=== PATIENT | male | born 1975 | race Caucasian/White ===

== ENCOUNTER 2019-12-04 14:05 | Emergency (ER) | payer OTHER, SELFPAY ==
[2019-12-04 14:21] VITALS: BP 109/71; PULSE 89; RESP 16; TEMP 36.9; O2SAT 94; BMI 31.8
--- NOTE | 2019-12-04 14:46 | XR_ITS ---
WS: [id number] XR chest 1V portable [id number] REASON FOR EXAM: cp FINDINGS: The cardiac silhouette is normal. The lung sims are well aerated. No pneumonia, pleural effusion, pulmonary edema, or pneumothorax. The hilum and apices are normal. No osseous abnormalities. XR/XR chest 1V portable [id number] IMPRESSION: Negative chest
--- NOTE | 2019-12-04 14:46 | CT_ITS ---
WS: [id number] CT abdomen pelvis w con* [id number] REASON FOR EXAM: fall IV CONTRAST ADMINISTERED: Omnipaque 305 mL TOTAL EXAM DLP: 1773.[address] scans at [facility] use at least one of these dose optimization techniques: automat ed exposure control; mA and/or kV adjustment per patient size (includes targeted exams where dose is matched to clinical indication); or iterative reconstruction. FINDINGS: The lower lung sims and mediastinum appear to be normal. A limbus fractures seen at the L4 vertebra with a minimal compression fracture of L4 also seen. There is bilateral small inguinal hernias present. The upper abdomen shows normal appearance of the liver no lacerations of the liver or spleen are seen . A granuloma is noted in the spleen. The pancreas shows normal appearance mild atrophy. The jejunum is poorly distended and shows mild edema of the wall on the left side no other evidence o f trauma is seen. The aorta inferior vena cava are normal. The stomach showed no abnormalities. Both kidneys were normal. The adrenal glands were normal. The right colon was within normal limits. The appendix is normal. CT/CT abdomen pelvis w con* [id number] IMPRESSION: The left side of the jejunum suggest mild edema in the aburto but no obstruction is seen. No peritonitis. Limbus fracture of the L4 vertebra with mild compression changes also seen L4
--- NOTE | 2019-12-04 14:51 | ED_ITS ---
HPI - Fall General: Chief Complaint: Fall Stated Complaint: fall off roof Time Seen by Provider: 12/04/19 14:35 Source: patient Mode of arrival: ambulatory Limitations: no limitations History of Present Illness: HPI Narrative: 44 yo male that fell roughly 10 feet off a ladder today. he landed in grass and states he landed on his left side and has had left flank and side pain since then. he rates his pain a 7/10. denies hitting his head and denies loc. he has been ambulatory. complaint: fall Onset (ago): hour(s) Fall from: from height (distance) Fall witnessed: yes, by bystander Place fall occurred: home Loss of consciousness: None Prolonged down time: no Associated symptoms-after fall: Reports abdominal pain; Denies chest pain, headache(s) or neck pain Review of Systems Const: Denies: fever(s), chills, body aches or change in appetite Eyes: Denies: blurry vision or eye discomfort ENMT: Denies: throat pain or dental pain Card: Denies: chest pain Resp: Denies: dyspnea GI: Reports: abdominal pain : Denies: dysuria Musc: Denies: neck pain or back pain Skin/Breast: Denies: rash Neuro: Denies: headache(s) Psych: Denies: depression Farooq/Lymph: Denies: easy bruising All/Imm: Denies: urticaria PFSH ED PFSH: Social History Smoking and tobacco status: former smoker Physical Exam Const: COMMON NORMALS: no acute distress, patient oriented x3 and healthy appearing HENMT: COMMON NORMALS: normocephalic and atraumatic HEAD & SCALP: normocephalic and atraumatic Eye: COMMON NORMALS: Equal, round and reactive pupils present and EOMs intact bilaterally PUPIL: Yes Equal, round and reactive pupils present Neck/C-Spine: COMMON NORMALS: full ROM and supple Chest: COMMONS NORMALS: normal inspection of the chest and normal palpation of entire chest wall Resp: COMMON NORMALS: normal respiratory effort, No retractions, No use of accessory muscles and clear to auscultation bilaterally AUSCULTATION: clear to auscultation bilaterally Cardio: COMMON NORMALS: regular rate, regular rhythm and No murmurs present (Cardio) RATE: regular rate RHYTHM: regular rhythm GI: COMMON NORMALS: Normal to inspection, nondistended, normoactive bowel sounds present, Soft to palpation, non-tender and no masses PALPATION: Yes Soft to palpation OTHER: Tenderness along left CVA left lateral abdomen is well Extremity: COMMON NORMALS: normal to inspection and full ROM Neuro: COMMON NORMALS: patient oriented x3, moves all extremities and no focal motor deficits Psych: COMMON NORMALS: mental status grossly normal, Normal thought process present and cooperative THOUGHT PROCESS: Normal thought process present Skin: NARRATIVE SKIN EXAM: Abrasion over left elbow with no laceration Course Vital Signs: Vital signs: Vital Signs Temperature 98.5 F 12/04/19 14:21 Pulse Rate 89 12/04/19 14:21 Respiratory Rate 18 12/04/19 15:20 Blood Pressure 109/71 12/04/19 14:21 Pulse Oximetry 97 12/04/19 15:20 MDM - Fall MDM Narrative: Medical decision making narrative: Patient presents here with fall and does have a lumbar fracture is minor nature. Patient's pain is well controlled here. Patient placed in a TLSO brace and is to follow-up with Dr. Dubois. He also has a possible edema around bowel but he is no pain at this time and no tenderness. I informed if he has any increasing pain he is to return immediately. Patient's x-ray of his chest was normal he had no head injury. He understands and agrees to plan. Lab Data: Labs: Lab Results 12/04/19 12/04/19 Range/Units 15:14 15:14 WBC 11.6 H (4.0-10.0) 10^3/ uL RBC 3.53 L (4.1-5.3) 10^6/u L Hgb 11.5 L (11.7-16.6) g/dL Hct 34.9 L (42.0-52.0) % MCV 98.9 H (80-94) fL MCH 32.6 (28.0-34.0) pg MCHC 33.0 (30.0-36.0) g/dL RDW 13.2 (12.1-15.1) % Plt Count 273 (130-400) 10^3/c mm MPV 9.8 (7.4-10.4) fL Neut % (Auto) 81.2 % Lymph % (Auto) 8.9 % Pike % (Auto) 8.5 % Eos % (Auto) 0.3 % Baso % (Auto) 0.2 % Neut # (Auto) 9.4 H (1.8-7.7) 10^3/u L Lymph # (Auto) 1.0 (0.8-4.8) 10^3/u L Pike # (Auto) 1.0 H (0.2-0.9) 10^3/u L Eos # (Auto) 0.0 (0.0-0.8) 10^3/u L Baso # (Auto) 0.0 (0.0-0.1) 10^3/u L Nucleated RBC % (a uto) 0 % Nucleated RBCs # 0.0 /100WBC Sodium 138 (136-145) mmol/L Potassium 3.8 (3.5-5.1) mmol/L Chloride 101 (98-107) mmol/L Carbon Dioxide 25 (22-29) mmol/L Anion Gap 15.8 (5-19) BUN 19 (6-20) mg/dL Creatinine 1.9 H (0.7-1.2) mg/dL GFR Calculation 38.5 L (90-130) mL/min Glucose 102 (65-115) mg/dL Calculated Osmolal ity 283 L (285-295) mOsm/k g Calcium 9.2 (8.5-10.5) mg/dL Total Bilirubin 0.6 (0.15-1.2) mg/dL AST 26 (0-40) U/L ALT 20 (0-41) U/L Alkaline Phosphata se 48 (40-130) IU/L Total Protein 7.3 (6.6-8.7) g/dL Albumin 4.4 (3.5-5.2) g/dL Globulin 2.9 (1.3-4.6) g/dL Imaging Data^: CXR: Radiologist's impression: [address] [place] [address] XRay Report Signed Patient: Alejandro Jones Unit #: [id number] : 1975 Age/Sex: 44 / M ADM Date: 12/04/19 Loc: ER Room/Bed: Attending Dr: Ordering Provider/Ordering MD: Doris Monge MD Date of Service: 12/04/19 Procedure(s): XR chest 1V portable [id number] Accession Number(s): [id number] Report Number: [id number] WS: [id number] XR chest 1V portable [id number] REASON FOR EXAM: cp FINDINGS: The cardiac silhouette is normal. The lung sims are well aerated. No pneumonia, pleural effusion, pulmonary edema, or pneumothorax. The hilum and apices are normal. No osseous abnormalities. XR/XR chest 1V portable [id number] IMPRESSION: Negative chest CT Abd/Pel: Radiologist's impression: [place] [address] CT Scan Report Signed Patient: Alejandro Jones Unit #: [id number] : 1975 Age/Sex: 44 / M ADM Date: 12/04/19 Loc: ER Room/Bed: Attending Dr: Ordering Provider/Ordering MD: Doris Monge MD Date of Service: 12/04/19 Procedure(s): CT abdomen pelvis w con* [id number] Accession Number(s): [id number] Report Number: [id number] WS: [id number] CT abdomen pelvis w con* [id number] REASON FOR EXAM: fall IV CONTRAST ADMINISTERED: Omnipaque 305 mL TOTAL EXAM DLP: 1773.[address] scans at [facility] use at least one of these dose optimization techniques: automated exposure control; mA and/or kV adjustment per patient size (includes targeted exams where dose is matched to clinical indication); or iterative reconstruction. FINDINGS: The lower lung sims and mediastinum appear to be normal. A limbus fractures seen at the L4 vertebra with a minimal compression fracture of L4 also seen. There is bilateral small inguinal hernias present. The upper abdomen shows normal appearance of the liver no lacerations of the liver or spleen are seen. A granuloma is noted in the spleen. The pancreas shows normal appearance mild atrophy. The jejunum is poorly distended and shows mild edema of the wall on the left side no other evidence of trauma is seen. The aorta inferior vena cava are normal. The stomach showed no abnormalities. Both kidneys were normal. The adrenal glands were normal. The right colon was within normal limits. The appendix is normal. CT/CT abdomen pelvis w con* [id number] IMPRESSION: The left side of the jejunum suggest mild edema in the aburto but no obstruction is seen. No peritonitis. Limbus fracture of the L4 vertebra with mild compression changes also seen L4 Discharge Plan Discharge Patient Disposition: Home, Self-Care Clinical Impression: Fall Qualifiers: Encounter type: initial encounter Qualified Code(s): W19.XXXA - Unspecified fall, initial encounter Fracture of lumbar spine Qualifiers: Encounter type: initial encounter Lumbar vertebra fracture level: L4 Fracture type: closed Fracture morphology: other fracture Qualified Code(s): S32.048A - O ther fracture of fourth lumbar vertebra, initial encounter for closed fracture Condition: Stable Prescriptions: [place] 5-325 mg tablet 1 tab PO Q6H PRN (Reason: pain) Qty: 14 RF: 0 No Action olmesartan 40 mg tablet 40 mg PO DAILY RF: 0 escitalopram oxalate 10 mg tablet 10 mg PO DAILY RF: 0 Discharge Orders: Discharge Order (Routine); Ordered 12/04/19 Ordered By: Doris Monge Referrals: Quirino Dubois MD [Physician] - 1-3 days Discharge Diet: Advance as tolerated Discharge Activity: Resume usual activity Patient Instructions: Thoracolumbar Fracture (ED) Coding Level of Care Code ED Pairing Machine Operator for Ummg Fwd Exam Comprehensive
[2019-12-04 15:20] VITALS: RESP 18; O2SAT 97
[2019-12-04] MEDS: morphine 4 mg/mL SDV 1 mL IVP (15:20)
[2019-12-04] MEDS: sodium chloride 0.9% 1,000 ML 999 ML IV (15:21)
[2019-12-04] MEDS: ondansetron 2 mg/ML SDV 2 mL 4 MG IVP (15:21)
[2019-12-04 15:39] LABS: Alanine Aminotransferase 20 U/L (0-41); Albumin Level 4.4 g/dL (3.5-5.2); Alkaline Phosphatase 48 IU/L (40-130); Anion Gap 15.8 (5-19); Aspartate Amino Transferase 26 U/L (0-40); Blood Urea Nitrogen 19 mg/dL (6-20); Calcium 9.2 mg/dL (8.5-10.5); Carbon Dioxide 25 mmol/L (22-29); Chloride 101 mmol/L (98-107); Globulin 2.9 g/dL (1.3-4.6); Glomerular Filtration Rate 38.5 mL/min (90-130); Glucose 102 mg/dL (65-115); Osmolality Calculated 283 mOsm/kg (285-295); Potassium 3.8 mmol/L (3.5-5.1); Sodium 138 mmol/L (136-145); Total Bilirubin 0.6 mg/dL (0.15-1.2); Total Protein 7.3 g/dL (6.6-8.7)
[2019-12-04] MEDS: iohexol 300 mg/mL 100 mL Btl IV (15:48)
[2019-12-04 16:26] LABS: Basophils % 0.2 %; Eosinophils % 0.3 %; Hematocrit 34.9 % (42.0-52.0); Hemoglobin 11.5 g/dL (11.7-16.6); Lymphocytes % 8.9 %; Mean Corpuscular Hemoglobin 32.6 pg (28.0-34.0); Mean Corpuscular Volume 98.9 fL (80-94); Mean Platelet Volume 9.8 fL (7.4-10.4); Monocytes % 8.5 %; Neutrophils # 9.4 10^3/uL (1.8-7.7); Neutrophils % 81.2 %; Nucleated Red Blood Cells % 0 %; Platelet Count 273 10^3/cmm (130-400); Red Blood Count 3.53 10^6/uL (4.1-5.3); Red Cell Distribution Width 13.2 % (12.1-15.1); White Blood Count 11.6 10^3/uL (4.0-10.0)
[2019-12-04 16:47] VITALS: BP 134/74; PULSE 78; RESP 16; O2SAT 97
--- NOTE | 2019-12-05 12:53 | DCPLANNER ---
aircraft maintenance manager was asked to schedule a follow up appointment for patient with Dr. Dubois. aircraft maintenance manager called the clinic, spoke with Abigail, gave clinic patients information. aircraft maintenance manager was told that patients information would be printed and reviewed. Clinic will call telephonic nurse case manager and patient with appointment information.
--- NOTE | 2019-12-07 11:49 | DCPLANNER ---
Patient has a follow up appointment scheduled for Wednesday, December 11, 2019 at 1:00 with Yamilet Ceron. Clinic will call patient with appointment information.
--- NOTE | 2019-12-15 14:21 | DCPLANNER ---
Patient had an appointment scheduled for 12.11.[address] Garrett office. Patient attended appointment with
== END 2019-12-04 16:49 | disposition home or self-care (01) ==
PROVIDERS: Emergency Provider Emergency Medicine
DX: S32.048A Other fracture of fourth lumbar vertebra, initial encounter for closed fracture (principal); W11.XXXA Fall on and from ladder, initial encounter; Z87.891 Personal history of nicotine dependence
CPT/HCPCS: 12345; 36415; 71045; 74177; 80053; 85025; 96361; 96374; 96375; 97760; 99282; 99283; J2270; J2405; J7030; L0456; Q9967

== ENCOUNTER 2019-12-11 13:54 | Outpatient (CLI) | payer OTHER, SELFPAY ==
--- NOTE | 2019-12-11 14:01 | XR_ITS ---
WS: [id number] LUMBAR SPINE TECHNIQUE: 3 views of the lumbar spine CLINICAL INFORMATION: L4 fracture COMPARISON: 2015 FINDINGS: Five [id number]-[id number] lumbar vertebral bodies. Mild disc space narrowing L5-S1. Trace retrolisthesis L 3 on L4 and L4 on L5. Mild chronic anterior wedging at T12. Moderate facet arthropathy L5-S1 with bon y foraminal narrowing. Limbus vertebra L4 superior endplate unchanged.. XR/XR lumbar spine 2-3V* [id number] IMPRESSION: 1. No significant changes since 2015 2. Trace retrolisthesis L3 on L4 and L4 on L5. 3. Mild disc space narrowing L5-S1.
== END 2019-12-11 13:55 | disposition home or self-care (01) ==
LOC: RADWPI 13:59
PROVIDERS: Family Provider Nurse Practitioner Family; PCP Nurse Practitioner Family; Visit Provider Licensed Practical Nurse
DX: S32.048A Other fracture of fourth lumbar vertebra, initial encounter for closed fracture (principal); X58.XXXA Exposure to other specified factors, initial encounter
CPT/HCPCS: 72100

== ENCOUNTER 2020-01-12 15:06 | Outpatient (CLI) | payer OTHER, SELFPAY ==
--- NOTE | 2020-01-12 15:30 | CT_ITS ---
WS: [id number] CT LUMBAR SPINE TECHNIQUE: Noncontrast CT of the lumbar spine with coronal and sagittal reformatted images. CLINICAL INFORMATION: Fracture COMPARISON: MRI 2015 DLP: 1652.[address] scans at [facility] use at least one of these dose optimization techniques: automat ed exposure control; mA and/or kV adjustment per patient size (includes targeted exams where dose is matched to clinical indication); or iterative reconstruction. FINDINGS: Postoperative changes laminectomy L5-S1. No high-grade central canal stenosis. A few Schmorl's nodes in the lower thoracic and lumbar spine. Slight retrolisthesis L3 on L4 and L4 on L5. No acute yamileth ludwig fractures. Slight anterior wedging L4 with limbus vertebra unchanged since 2014. Nondisplaced healing left L1-L2 transverse process fractures. L1-L2: Normal. L2-L3: No significant disc bulging. Moderate facet arthropathy. Spinal canal and foramen are patent. L3-L4: Mild annular bulging. Moderate facet arthropathy. Spinal canal and foramen are patent. L4-L5: Tiny left pericentral protrusion. Impingement on the traversing left L5 nerve root. Mild centr al canal stenosis. Mild right and no significant left foraminal narrowing. Moderate facet arthropathy . L5-S1: Tiny left subarticular disc osteophyte protrusion. Impingement traversing left S1 nerve root. Mild to moderate left and no significant right foraminal narrowing. Visualized pelvic bony structures: Normal. Paravertebral soft tissues: Normal. CT/CT lumbar spine wo con* [id number] IMPRESSION: 1. Mild lumbar curve. No acute appearing compression fractures. 2. No high-grade central canal stenosis. 3. Prior postoperative changes hemilaminectomy at L5-S1. 4. Slight retrolisthesis L3 on L4 and L4 on L5. 5. Tiny disc osteophyte protrusion L5-S1 with slight impingement traversing le ft S1 nerve root. Mild left L5-S1 foraminal narrowing. 6. Mild central canal stenosis L4-5 7. Incidental limbus vertebra L4 8. Healing left L1 and L2 transverse process fractures with callus formation.
== END 2020-01-12 15:07 | disposition home or self-care (01) ==
LOC: RADWPI 15:09
PROVIDERS: Family Provider Nurse Practitioner Family; PCP Nurse Practitioner Family; Visit Provider Licensed Practical Nurse
DX: M48.50XA Collapsed vertebra, not elsewhere classified, site unspecified, initial encounter for fracture (principal); M48.061 Spinal stenosis, lumbar region without neurogenic claudication; M25.78 Osteophyte, vertebrae
CPT/HCPCS: 72131

== ENCOUNTER → 2020-04-21 11:03 | Outpatient (BNVA) | payer OTHER, SELFPAY | PROVIDERS: Family Provider Nurse Practitioner Family; PCP Nurse Practitioner Family | DX: Z20.828 Contact with and (suspected) exposure to other viral communicable diseases (principal); J11.1 Influenza due to unidentified influenza virus with other respiratory manifestations | CPT/HCPCS: 87400; 87635 ==

== ENCOUNTER 2021-11-13 20:00 | Outpatient (CLI) | payer OTHER, SELFPAY | END 2021-11-13 20:01 | disposition home or self-care (01) | LOC: SLEEP 11-14 05:57 | PROVIDERS: Family Provider Nurse Practitioner Family; PCP Nurse Practitioner Family; Visit Provider Nurse Practitioner Family | DX: G47.33 Obstructive sleep apnea (adult) (pediatric) (principal) | CPT/HCPCS: 95811 ==

== ENCOUNTER 2023-02-10 08:57 | Day surgery (SDC) | payer OTHER, SELFPAY ==
[2023-02-09 11:00] VITALS: BMI 36.6
[2023-02-10] VITALS (10 sets, daily range): BP systolic 83–143; BP diastolic 45–87; PULSE 58–100; RESP 12–18; TEMP 36.1–36.6; O2SAT 92–96
--- NOTE | 2023-02-10 08:16 | W.PM.OPSUD ---
Surgery/Procedure H&P Update DATE OF PROCEDURE: February 10, 2023 DATE H&P PERFORMED: 01/25/23 H&P UPDATE INFORMATION: I have reviewed H&P completed within last 30 days, I have examined patient prior to procedure, No changes to prior documentation and H&P is in [facility] EMR on date indicated PLANNED PROCEDURE: Operation Date: 02/10/23 10:15 Proposed Procedures p 10054 open umbilical hernia repair with mesh K42.9(Not Applicable) - Malvin Gerardo MD
[2023-02-10] MEDS: sodium chloride 0.9% 1,000 ML 30 ML IV (09:27)
--- NOTE | 2023-02-10 10:04 | ANES.PREANE2 ---
Pre-Anesthetic Assessment Height/Weight: Height 1.83 m Weight 122.47 kg Temp Pulse Resp BP Pulse Ox O2 Del Method 97.9 F 76 18 143/87 96 Room Air 02/10/23 09:07 02/10/23 09:07 02/10/23 09:07 02/10/23 09:07 02/10/23 09:07 02/10/23 09:07 Operation Date: 02/10/23 10:15 Proposed Procedures p 69109 open umbilical hernia repair with mesh K42.9(Not Applicable) - Malvin Gerardo MD Familial anesthetic complications: none Was Beta Kelly taken within 24 hours: N/A Was Clonidine taken within 24 hours: N/A Last intake: Intake Last Liquid Date 02/09/23 Last Liquid Time 23:00 Last Solid Date 02/09/23 Last Solid Time 23:00 Social No alcohol and No tobacco Exam alert, oriented x 3, clear to auscultation bilaterally and regular rate & rhythm Airway Submandibular: within normal limits Cervical ROM: within normal limits Mallampati: Class II Dentition: full CV/HEM Hypertension Metabolic Morbid Obesity Anesthetic Plan ASA status: 2 Anesthesia: General Medications/Allergies Home Medications Medication Instructions Recorded Confirmed Last Taken Type amlodipine 2.5 mg-benazepril 10 mg 1 cap PO DAILY 01/25/23 02/10/23 02/10/23 History capsule Allergies Allergy/AdvReac Type Severity Reaction Status Date / Time No Known Allergies Allergy Verified 01/25/23 09:37 Current Medications Generic Name Dose Route Start Last Admin Trade Name Freq PRN Reason Stop Dose Admin Sodium Chloride 1,000 mls @ 30 mls/hr 02/10/23 09:00 02/10/23 09:27 Sodium Chloride 0.9% IV 02/11/23 08:59 30 mls/hr .Q24H MARY Administration PFSH Anesthesia Medical History (Updated 12/15/19 @ 09:36 by Cristina Ceron APRN) Vertebral compression fracture Surgical History (Updated 01/25/23 @ 09:45 by Euefmia Andino) History of lumbar surgery 03/29/2014 Dr. Mirna Dubois: Right L5-S1 hemilaminotomy/discectomy/foraminotomy Family History Father Cancer Mother Cancer Social History Smoking and tobacco status: former smoker Alcohol intake: current Alcohol intake frequency: holidays/special occasions only Substance/Drug Use: never Household members: spouse Marital status: Current occupational status: employed Current occupation: [email or web address] Anesthesia Cardiac Studies: No Data to Display
[2023-02-10] MEDS: ceFAZolin 3,000 MG in sodium chloride 0.9% (100 ml) 100 ML 200 MG IV (11:38)
[2023-02-10] MEDS: lidocaine-epi 1% 20 mL INJ INJECTION (12:01)
[2023-02-10] MEDS: BUPivacaine 0.25% INJ 10 mL INJECTION (12:01)
--- NOTE | 2023-02-10 12:38 | PM.OP ---
Operative Report Date of procedure: February 10, 2023 Pre-op diagnosis: Incarcerated Umbilical hernia Post-op diagnosis: Incarcerated Umbilical hernia Procedure done: Open umbilical hernia repair with mesh. Implants: 4.3cm BARD Ventralex Surgeon: Malvin Gerardo MD. Complications: none Findings: there was a 2cm umbilical hernia containing incarcerated preperitoneal fat. Brief History: 48 y/o M who presented to my clinic for evaluation of umbilical hernia. after a complete discussion regarding risks and benefits patient decided to proceed with open umbilical hernia repair with mesh. Procedure: Patient was wearing into the OR. Patient was placed in the supine position, general anesthesia was given. The abdomen was prepped and draped in the usual sterile fashion. An infraumbilical semilunar incision was made, the incision was carried down to the level of the fascia. The umbilical stalk was then encircled using blunt dissection. The umbilical stalk was transected taking careful consideration of not injuring the hernia sac or contents. The hernia sac was dissected from the fascial ring and reduced. The preperitoneal space was developed. A 4.3 cm Ventralex mesh was placed in the defect into the preperitoneal space. The hernia was then repaired using multiple #0 Prolene [id number] sutures and incorporating the tails of the mesh into the repair. The umbilicus was then tacked down to the fascia with #2-0 Vicryl. Local anesthesia was administered. Hemostasis was verified. The wound was closed in layers using #3-0 Vicryl for the subcutaneous layer and #4-0 Monocryl for the skin. Dermabond was applied, a cottonball was placed in the bellybutton and sterile dressing was applied. At the end of the procedure all the counts were correct. The patient tolerated well the procedure and was transferred to the PACU in stable condition.
[2023-02-10] MEDS: meloxicam 7.5 mg tablet PO (13:43)
--- NOTE | 2023-02-10 15:08 | ANE.PACU2 ---
Inpatient post-anesthesia follow up: Airway intact: Yes Vital signs: Temperature 97 F Pulse Rate 59 Respiratory Rate 18 Blood Pressure 97/54 Pulse Oximetry 96 Oxygen Delivery Me thod Room Air Oxygen Flow Rate 7 Fraction of Inspir ed Oxygen Hydration adequate: Yes Nausea and vomiting: No Pain level: 3 Mental status: Baseline
== END 2023-02-10 13:45 | disposition home or self-care (01) ==
PROVIDERS: PCP Nurse Practitioner Family; Visit Provider Surgery
DX: K42.0 Umbilical hernia with obstruction, without gangrene (principal); I10 Essential (primary) hypertension; E66.01 Morbid (severe) obesity due to excess calories; Z68.36 Body mass index [BMI] 36.0-36.9, adult; Z87.891 Personal history of nicotine dependence
CPT/HCPCS: 49592; J0131; J0690; J1100; J1885; J2250; J2405; J2704; J2710; J3010; J3490; J7030

== ENCOUNTER 2024-02-22 08:02 | Day surgery (SDC) | payer BC, SELFPAY ==
[2024-02-22 08:14] VITALS: BP 126/92; PULSE 84; RESP 16; TEMP 36.2; O2SAT 98
[2024-02-22 08:16] VITALS: BMI 32.5
[2024-02-22] MEDS: sodium chloride 0.9% 1,000 ML 30 ML IV (08:36)
--- NOTE | 2024-02-22 08:41 | ANES.PREANE2 ---
Pre-Anesthetic Assessment Height/Weight: Height 1.83 m Weight 108.862 kg Temp Pulse Resp BP Pulse Ox O2 Del Method 97.1 F L 84 16 126/92 98 Room Air 02/22/24 08:14 02/22/24 08:14 02/22/24 08:14 02/22/24 08:14 02/22/24 08:14 02/22/24 08:14 Preop Diagnosis: Screening Operation Date: 02/22/24 08:50 Proposed Procedures p Colonoscopy 38457,G0105, Z12.11(Not Applicable) - Raymundo Galicia MD Was Beta Kelly taken within 24 hours: N/A Was Clonidine taken within 24 hours: N/A Last intake: Intake Last Liquid Date 02/21/24 Last Liquid Time 18:00 Last Solid Date 02/21/24 Last Solid Time 10:00 Social No alcohol and No tobacco Exam alert, oriented x 3, clear to auscultation bilaterally and regular rate & rhythm Airway Submandibular: within normal limits Cervical ROM: within normal limits Mallampati: Class II Dentition: full History/ROS No significant history except as noted and No significant complaints Pulmonary None reported CV/HEM Hypertension None reported Hepatic None reported GI None reported Metabolic None reported Musc/skel Lower Back Pain Neuropsych None reported Anesthetic Plan ASA status: 2 Anesthesia: MAC Risk of > 500 ml blood loss (7ml/kg in children): No Medications/Allergies Home Medications Medication Instructions Recorded Confirmed Last Taken Type amlodipine 2.5 mg-benazepril 10 mg 1 cap PO DAILY 01/25/23 02/22/24 02/21/24 History capsule Allergies Allergy/AdvReac Type Severity Reaction Status Date / Time No Known Allergies Allergy Verified 02/08/24 14:31 Current Medications Generic Name Dose Route Start Last Admin Trade Name Freq PRN Reason Stop Dose Admin Sodium Chloride 1,000 mls @ 30 mls/hr 02/22/24 08:15 02/22/24 08:36 Sodium Chloride 0.9% IV 30 mls/hr .Q24H MARY Administration PFSH Anesthesia Medical History Vertebral compression fracture Surgical History (Updated 02/08/24 @ 14:35 by FLOR Ramesh) History of lumbar surgery 03/29/2014 Dr. D. Green: Right L5-S1 hemilaminotomy/discectomy/foraminotomy Family History (Updated 02/08/24 @ 14:[address]) Father Cancer Colon cancer Mother Cancer Breast cancer Social History Smoking and tobacco/nicotine status: former use of tobacco/nicotine Alcohol intake: current Alcohol intake frequency: holidays/special occasions only Substance/Drug Use: never Household members: spouse Marital status: Current occupational status: employed Current occupation: [employer] Data Anesthesia Cardiac Studies: No Data to Display
--- NOTE | 2024-02-22 09:12 | P.HP_ITS ---
Same Day Surgery H&P Indication for Procedure/HPI DATE OF PROCEDURE: February 22, 2024 CHIEF COMPLAINT/INDICATIONFOR SURGICAL PROCEDURE: Screening colonoscopy PREOP DIAGNOSIS: Screening PLANNED PROCEDURE: Operation Date: 02/22/24 08:50 Proposed Procedures p Colonoscopy 75574,G0105, Z12.11(Not Applicable) - Raymundo Galicia MD Medications/Allergies* Home Medications Medication Instructions Recorded Confirmed Type amlodipine 2.5 mg-benazepril 10 mg 1 cap PO DAILY 01/25/23 02/22/24 History capsule Allergies/Adverse Reactions Allergy/AdvReac Type Severity Reaction Status Date / Time No Known Allergies Allergy Verified 02/08/24 14:31 Current Medications: Generic Name Dose Route Start Last Admin Trade Name Freq PRN Reason Stop Dose Admin Sodium Chloride 1,000 mls @ 30 mls/hr 02/22/24 08:15 02/22/24 08:36 Sodium Chloride 0.9% IV 30 mls/hr .Q24H MARY Administration Pertinent History/Comorbid Conditions* Medical History (Updated 12/15/19 @ 09:36 by Cristina Ceron APRN) Vertebral compression fracture Surgical History (Updated 02/26/23 @ 12:29 by Malvin Gerardo MD) History of lumbar surgery 03/29/2014 Dr. Mirna Dubois: Right L5-S1 hemilaminotomy/discectomy/foraminotomy Family History (Updated 02/08/24 @ 14:39 by FLOR Ramesh) Colon cancer Father Breast cancer Mother Cancer Father Mother Social History Smoking and tobacco/nicotine status: former use of tobacco/nicotine Alcohol intake: current Alcohol intake frequency: holidays/special occasions only Substance/Drug Use: never Household members: spouse Marital status: Current occupational status: employed Current occupation: [employer] Pertinent Exam Findings alert, oriented x 3 and regular rate & rhythm Recommendations Surgery/Procedure today Other Plans: Proceed with colonoscopy Coding Level of Care Code Acute Code for Chg Fwd
[2024-02-22 09:44] VITALS: BP 96/55; PULSE 91; RESP 20; TEMP 36.2; O2SAT 95
[2024-02-22 09:57] VITALS: BP 102/54; PULSE 74; RESP 18; O2SAT 97
[2024-02-22 10:14] VITALS: BP 108/65; PULSE 77; RESP 18; O2SAT 100
--- NOTE | 2024-02-22 10:35 | ANE.PACU2 ---
Inpatient post-anesthesia follow up: Airway intact: Yes Vital signs: Temperature 97.2 F Pulse Rate 77 Respiratory Rate 18 Blood Pressure 108/65 Pulse Oximetry 100 Oxygen Delivery Me thod Room Air Oxygen Flow Rate 5 Fraction of Inspir ed Oxygen Hydration adequate: Yes Nausea and vomiting: No Pain level: 1 Mental status: Baseline
== END 2024-02-22 10:35 | disposition home or self-care (01) ==
PROVIDERS: PCP Family Medicine; Visit Provider Student in an Organized Health Care Education/Training Program
PROC: 0DJD8ZZ Inspection of Lower Intestinal Tract, Via Natural or Artificial Opening Endoscopic (ICD-10-PCS; CPT 45378; principal; 2024-02-22 08:50)
DX: Z12.11 Encounter for screening for malignant neoplasm of colon (principal); K57.30 Diverticulosis of large intestine without perforation or abscess without bleeding; I10 Essential (primary) hypertension; Z87.891 Personal history of nicotine dependence
CPT/HCPCS: 45378; 45380; J2704; J7030

== ENCOUNTER 2024-08-30 12:23 | Outpatient (CLI) | payer BC, SELFPAY ==
--- NOTE | 2024-08-30 12:35 | MR_ITS ---
WS: [id number] MRI THORACIC SPINE noncontrast HISTORY: Mid to low back pain COMPARISON: None available. TECHNIQUE: Multiplanar sequences are performed in sagittal and axial planes. Mild straightening of the normal cervical lordosis. Disc osteophyte at C5-6 and C6-7 with mild encroachment upon the ventral thecal sac but no cord compression. Normal posterior thoracic alignment. Signal within the thoracic cord is normal. No syrinx. No atrophy or enlargement. Disc spaces are mildly narrowed. T1-2: Normal. T2-3: Small central disc protrusion. Mild facet arthritis. Mild LEFT foraminal stenosis. T3-4: Mild disc bulging and facet arthritis. Mild foraminal stenosis. T4-5: Small central disc protrusion with mild facet arthritis. T5-6: Small central disc protrusion with moderate facet arthritis. Mild bilateral foraminal stenosis. T6-7: Bilateral paracentral disc protrusions. Mild effacement of ventral CSF. Mild bilateral foraminal stenosis. T7-8: Minimal disc bulging with mild facet arthritis. T8-9: Very tiny LEFT paracentral disc protrusion. T9-10: Mild bilateral facet arthritis and foraminal narrowing. T10-11: Mild facet arthritis and foraminal narrowing. T11-12: Mild facet arthritis and foraminal narrowing. Very tiny central disc protrusion with annular fissure. No adrenal mass. Paraspinal soft tissues are negative. MR/MR thoracic spin wo con* [id number] IMPRESSION: 1. No high-grade central or foraminal stenosis. 2. No cord syrinx. 3. Multilevel small disc protrusions and foraminal osteophytes resulting in mi ld foraminal stenosis.
--- NOTE | 2024-08-30 12:50 | MR_ITS ---
WS: [id number] MRI LUMBAR SPINE WITH AND WITHOUT CONTRAST HISTORY: LOW BACK PAIN COMPARISON: 08/22/2014 TECHNIQUE: Sagittal and axial multisequence imaging is submitted. Postcontrast imaging 20 mL MultiHance. Mild straightening of the normal lumbar lordosis. Mild disc space narrowing and desiccation. Most significant narrowing at L3-4 with adjacent endplate reactive marrow edema. Schmorl's nodes at T12 and L1. No acute fracture. Conus terminates normally at L1-2 disc level. T12-L1: Mild osteophytic ridging. No stenosis. Very small annular fissure centrally. L1-L2: Mild annular disc bulging and facet arthritis. No stenosis. L2-L3: Moderate annular disc bulging with moderate ligamentum flavum and facet arthritis. Mild bilateral subarticular recess stenosis. Mild progression of stenosis since 2014. L3-L4: Diffuse annular disc bulging, mild osteophytic ridging, ligamentum flavum and facet arthritis. Moderate central, bilateral subarticular recess and mild foraminal stenosis. Most significant contact on the traversing L4 nerve roots. L4-L5: Mild annular disc bulging asymmetric to the LEFT. Mild osteophytic ridging. Moderate ligamentum flavum and facet arthritis. Mild subarticular recess encroachment and mild RIGHT foraminal stenosis. L5-S1: RIGHT hemilaminectomy defect. Ligamentum flavum debridement. LEFT foraminal disc osteophyte. Mild to moderate LEFT foraminal stenosis. Mild RIGHT foraminal stenosis. Paravertebral soft tissues are normal. No discitis or osteomyelitis. Mild scar formation RIGHT L5-S1 near the laminectomy site. RIGHT S1 nerve root is slightly enlarged and surrounded by gliosis. MR/MR lumbar spine wo/w con [id number] IMPRESSION: 1. Mild progression of degenerative disc disease and stenosis since 2014. 2. RIGHT hemilaminectomy defect at L5-S1. 3. Moderate disc base narrowing and desiccation at L3-4. 4. L2-3: Mild bilateral subarticular recess stenosis progressed since 2014. 5. L3-4: Moderate central, bilateral subarticular recess and mild foraminal st enosis. Significant disc contact on the traversing L4 nerve roots. 6. L4-5: Mild subarticular recess encroachment and mild RIGHT foraminal stenos is. 7. L5-S1: LEFT foraminal disc osteophyte causing mild to moderate LEFT foramin al stenosis. 8. No discitis or osteomyelitis.
[2024-08-30] MEDS: gadobenate dimeglumine 20 mL vial IV (13:35)
== END 2024-08-30 12:24 | disposition home or self-care (01) ==
LOC: RAD 12:24
PROVIDERS: PCP Family Medicine; Visit Provider Physical Therapist
DX: Z45.42 Encounter for adjustment and management of neurostimulator (principal); G89.29 Other chronic pain; M25.78 Osteophyte, vertebrae; R93.7 Abnormal findings on diagnostic imaging of other parts of musculoskeletal system; M51.24 Other intervertebral disc displacement, thoracic region; M47.894 Other spondylosis, thoracic region; M48.04 Spinal stenosis, thoracic region; M51.369 Other intervertebral disc degeneration, lumbar region without mention of lumbar back pain or lower extremity pain; M96.89 Other intraoperative and postprocedural complications and disorders of the musculoskeletal system; M48.061 Spinal stenosis, lumbar region without neurogenic claudication; M48.07 Spinal stenosis, lumbosacral region; M51.46 Schmorl's nodes, lumbar region; M51.44 Schmorl's nodes, thoracic region; M24.28 Disorder of ligament, vertebrae; M47.896 Other spondylosis, lumbar region
CPT/HCPCS: 72146; 72158; A9577

== ENCOUNTER → 2025-04-20 12:00 | Outpatient (BNVA) | payer BC, SELFPAY | PROVIDERS: PCP Family Medicine; Visit Provider Family Medicine | DX: I10 Essential (primary) hypertension (principal); R35.1 Nocturia | CPT/HCPCS: 80053; 80061; 83036; 84153; 85025 ==

== ENCOUNTER 2025-05-14 11:45 | Outpatient (CLI) | payer BC, SELFPAY ==
--- NOTE | 2025-05-14 12:00 | CTR_ITS ---
PROCEDURE INFORMATION: Exam: CT Maxillofacial Without Contrast, Sinus Exam date and time: 05/14/2025 12:06 PM Age: 50 years old Clinical indication: -chronic sinusitis and migraines, pain and pressure TECHNIQUE: Imaging protocol: CT Maxillofacial without contrast. Focus on the sinuses. Radiation optimization: All CT scans at this facility use at least one of these dose optimization techniques: automated exposure control; mA and/or kV adjustment per patient size (includes targeted exams where dose is matched to clinical indication); or iterative reconstruction. COMPARISON: No relevant prior studies available. RADIATION DOSE METRICS: Total DLP (mGy-cm): 392.88 FINDINGS: Frontal sinuses: No air-fluid levels. Ethmoid sinuses: No air-fluid levels. Sphenoid sinuses: No air-fluid levels. Maxillary sinuses: Mild mucosal thickening in the right maxillary sinus. Occlusion of the right ostiomeatal unit. Patent left ostiomeatal unit. Nasal cavity: Unremarkable. Orbital cavities: Orbits are normal. Globes are unremarkable. Bones: Unremarkable. Soft tissues: Unremarkable. Mastoid air cells: The mastoid air cells are clear. CT/CT sinus wo con* [id number] IMPRESSION: Mild mucosal thickening in the right maxillary sinus. Occlusion of the right ostiomeatal unit. Patent left ostiomeatal unit.
== END 2025-05-14 11:46 | disposition home or self-care (01) ==
LOC: RAD 11:47
PROVIDERS: PCP Family Medicine; Visit Provider Family Medicine
DX: J32.9 Chronic sinusitis, unspecified (principal); R09.89 Other specified symptoms and signs involving the circulatory and respiratory systems; J34.89 Other specified disorders of nose and nasal sinuses
CPT/HCPCS: 70486

== ENCOUNTER 2025-05-28 08:25 | Outpatient (CLI) | payer OTHER, SELFPAY ==
--- NOTE | 2025-05-28 08:33 | CT_ITS ---
WS: [id number] CT LUMBAR SPINE TECHNIQUE: Noncontrast CT of the lumbar spine with coronal and sagittal reformatted images. CLINICAL INFORMATION: INTERVERTEBRAL DISC DISORDER W/RADICULOPATHY,LSPINE REGION COMPARISON: MRI 08/30/2024 DLP: 991.[address] scans at [facility] use at least one of these dose optimization techniques: automated exposure control; mA and/or kV adjustment per patient size (includes targeted exams where dose is matched to clinical indication); or iterative reconstruction. FINDINGS: Mild lumbar curve. No acute compression. Slight retrolisthesis L3 on L4 and L4 on L5. No acute compression fractures. L1-L2: Slight narrowing LEFT subarticular recess. Mild LEFT foraminal narrowing. L2-L3: Mild disc bulge with mild central canal stenosis. Narrowing of the LEFT subarticular recess. Foramen are patent. L3-L4: Slight retrolisthesis. Annular bulging with moderate central canal stenosis. Narrowing of the subarticular recess bilaterally. Moderate facet arthropathy. Mild LEFT foraminal narrowing. L4-L5: Mild annular bulging. Slight narrowing LEFT subarticular recess. Mild bilateral foraminal narrowing. L5-S1: LEFT eccentric disc osteophyte complex with mild LEFT foraminal narrowing. Encroachment on the exiting LEFT L5 nerve root. Moderate facet arthropathy. Visualized adrenal glands are normal. Sigmoid diverticulosis. CT/CT lumbar spine wo con* [id number] IMPRESSION: 1. Mild lumbar curve. No acute compression. 2. Mild central canal stenosis L2-3 and moderate L3-4. 3. Narrowing of the LEFT L4-5 subarticular recess. 4. Mild to moderate LEFT L5-S1 bony foraminal narrowing with encroachment exit ing LEFT L5 nerve root 5. Moderate facet arthropathy L3-L5.
== END 2025-05-28 08:26 | disposition home or self-care (01) ==
LOC: RAD 08:26
PROVIDERS: PCP Family Medicine; Visit Provider Physical Therapist
DX: M51.16 Intervertebral disc disorders with radiculopathy, lumbar region (principal); M43.8X6 Other specified deforming dorsopathies, lumbar region; M48.061 Spinal stenosis, lumbar region without neurogenic claudication; M48.07 Spinal stenosis, lumbosacral region; M51.17 Intervertebral disc disorders with radiculopathy, lumbosacral region; M47.896 Other spondylosis, lumbar region
CPT/HCPCS: 72131